=== PATIENT | male | born 1965 | race Hispanic/Latino ===

== ENCOUNTER 2018-03-22 21:00 | Emergency (ER) | payer BC, SELFPAY ==
--- NOTE | 2018-03-22 22:54 | RAD ---
FRONTAL CHEST RADIOGRAPH WITH TWO VIEWS LEFT RIBS 03/22/18 PROVIDED CLINICAL HISTORY: Rib pain status post fall. FINDINGS: The cardiac silhouette is within normal limits. No focal consolidation, pleural fluid or pneumothorax apparent. No evidence for displaced left sided rib fracture. IMPRESSION: As above. POS: [facility]
[2018-03-22] MEDS ORDERED: Ketorolac Tromethamine 30 MG/ML VIAL ONE (23:03)
== END 2018-03-22 23:26 | disposition home or self-care (01) ==
LOC: ERS 21:00
DX: S00.81XA Abrasion of other part of head, initial encounter (principal); R07.89 Other chest pain; E11.9 Type 2 diabetes mellitus without complications; I10 Essential (primary) hypertension; F17.210 Nicotine dependence, cigarettes, uncomplicated; Z79.899 Other long term (current) drug therapy; W19.XXXA Unspecified fall, initial encounter
CPT/HCPCS: 96372; J1885

== ENCOUNTER 2023-01-05 17:00 | Outpatient (CLI) | payer BC | END 2023-01-05 17:01 | disposition home or self-care (01) | LOC: SLEEPLAB 17:00 | PROVIDERS: ATTEND Internal Medicine Critical Care Medicine | DX: G47.33 Obstructive sleep apnea (adult) (pediatric) (principal); E11.9 Type 2 diabetes mellitus without complications; R53.83 Other fatigue; E66.9 Obesity, unspecified; R06.83 Snoring; Z68.41 Body mass index [BMI] 40.0-44.9, adult | CPT/HCPCS: 95811 ==